=== PATIENT | female | born 1965 | race Caucasian/White ===

== ENCOUNTER 2019-07-11 05:46 | Inpatient (IN) ==
--- NOTE | 2019-06-25 11:31 | PAT Medication Instructions ---
Medication Instructions Date of Service June 25, 2019 Home Medications fluticasone furoate [Flonase Sensimist] 1 spray INTRANASAL DAILY PRN ibuprofen 200 mg PO Q6H PRN levothyroxine [Synthroid] 125 mcg PO QAM loratadine 10 mg PO DAILY PRN ranitidine HCl [Zantac Maximum Strength] 150 mg PO PM PRN ASK your surgeon for instructions ibuprofen 200 mg PO Q6H PRN DO NOT take the morning of surgery loratadine 10 mg PO DAILY PRN Take morning of surgery With a small sip of water, OTHERWISE NOTHING TO EAT OR DRINK AFTER MIDNIGHT: fluticasone furoate [Flonase Sensimist] 1 spray INTRANASAL DAILY PRN (if needed) levothyroxine [Synthroid] 125 mcg PO QAM Take evening before surgery fluticasone furoate [Flonase Sensimist] 1 spray INTRANASAL DAILY PRN (if needed) loratadine 10 mg PO DAILY PRN (if needed) ranitidine HCl [Zantac Maximum Strength] 150 mg PO PM PRN (if needed) Other Notes If you have any questions please call us at [phone] or [phone] or [phone] or [phone]
--- NOTE | 2019-06-26 14:12 | Anesthesiology Consultation ---
Date of Service June 26, 2019 Assessment & Plan (1) Encounter for pre-operative examination: Chart Review Chart Review: Acceptable Risk for Surgery and Patient seen in Pre Admission Testing Teaching & Discussion Pre-Anesthesia Teaching/Discussion Notes: Instructed NPO after midnight before surgery,except medications with 15 cc of water. Medication instructions provided according to the PAT guidelines. History Surgery Operation Date: 07/11/19 07:45 Proposed Procedures p L3-L5 Decompression and Fusion, Spinal Cord Monitoring - Josh Escobedo DO Height/Weight Height: 5 ft 6.5 in Weight: 103.9 kg Allergies Allergy/AdvReac Type Severity Reaction Status Date / Time Sulfa (Sulfonamide Allergy Verified 06/18/19 07:33 Antibiotics) Medications Home Medications Medication Instructions Recorded Confirmed Last Taken fluticasone furoate [Flonase 1 spray INTRANASAL DAILY PRN 06/18/19 06/18/19 Unknown Sensimist] ibuprofen 200 mg PO Q6H PRN 06/18/19 06/18/19 Unknown levothyroxine [Synthroid] 125 mcg PO QAM 06/18/19 06/18/19 Unknown loratadine 10 mg PO DAILY PRN 06/18/19 06/18/19 Unknown ranitidine HCl [Zantac Maximum 150 mg PO PM PRN 06/18/19 06/18/19 Unknown Strength] Past Medical History Medical History (Updated 06/26/19 @ 14:21 by Paola Sandoval) Chronic back pain Degenerative disc disease GERD (gastroesophageal reflux disease) controlled Hypertension Hypothyroidism Obesity Osteoarthritis Exercise / Class Metabolic Activity III < 4 Walking/Shop/Light housework Past Family History Family History Grandmother (Maternal) Colon cancer Past Surgical History Surgical History History of arthroscopy right knee ACL History of breast biopsy History of cholecystectomy History of colonoscopy History of tooth extraction Hx of hernia repair Past Anesthesia History No Hx of Anesthesia Complications and No Family Hx of Anesthesia Complications History of PONV No Hx of PONV and Hx of Motion Sickness Social History Smoking Status: Current every day smoker tobacco type: cigarettes Smoking cigarettes per day: 1/2 PPD x 30 years Do You Dip or Chew Tobacco: No Hx Alcohol Use: No Hx Substance Use: No substance use type: does not use Review of Systems Patient denies chest pain, shortness of breath, cough, wheezing, palpitations. Physical Exam Vital Signs VITALS BP 158/93 (known hx HTN, no meds- PCP monitoring) P 68 TEMP 97.9 SP02 100%RA RESP 18 PHYSICAL Full neck and c-spine range of motion. Full TMJ range of motion. TMD 3 finger breaths Mallampati Score 1 Dentition: intact., crown on side, implant on upper left side tooth Lungs: clear throughout to auscultation Cardiac: regular rate and rhythm, no murmurs noted Spine: normal Carotid arteries: negative bruit Extremities: no edema Testing Laboratory Results 06/26/19 14:25 06/26/19 14:25 PT 10.6 Seconds (9.0-12.0) 06/26/19 14: INR 1.0 (0.9-1.1) 06/26/19 14: APTT 25.2 Seconds (21.0-31.0) 06/26/19 14:25 Urine Color Yellow 06/26/19 14:25 Urine Appearance Clear (Clear) 06/26/19 14:25 Urine pH 7.5 (4.5-7.5) 06/26/19 14:25 Ur Specific Lapel 1.010 (1.000-1.030) 06/26/19 14:25 Urine Protein Negative (Negative) 06/26/19 14:25 Urine Glucose (UA) Negative (Negative) 06/26/19 14:25 Urine Ketones Negative (Negative) 06/26/19 14:25 Urine Nitrite Negative (Negative) 06/26/19 14:25 Ur Leukocyte Esterase Negative (Negative) 06/26/19 14:25 Blood Type O Positive 06/26/19 14:25 Antibody Screen NEGATIVE 06/26/19 14:25 Electrocardiogram Date: 06/26/19 Findings: + NSR @ (75) Chest X-Ray Date: 06/26/19 Findings: + NAD
--- NOTE | 2019-06-26 14:47 | XRay Report ---
XR chest Pre-admission PA/Lat CLINICAL HISTORY: pat COMPARISON STUDY: No previous studies for comparison. FINDINGS: The bones soft tissues and hemidiaphragms are normal. The cardiomediastinal silhouette is n ormal. The lungs are clear. The pulmonary vasculature is normal. IMPRESSION: Negative chest. ACT 112: Negative or not required by law. The above report was generated using voice recognition software. It may contain grammatical, syntax or spelling errors. Electronically signed by: Jean-Pierre Dudley M.D. 06/26/2019 2:46 PM
--- NOTE | 2019-06-26 15:05 | Electrocardiogram Report ---
Test Reason : Blood Pressure : / mmHG Vent. Rate : 075 BPM Atrial Rate : 075 BPM P-R Int : 162 ms QRS Dur : 088 ms QT Int : 386 ms P-R-T Axes : 000 063 041 degrees QTc Int : 431 ms Normal sinus rhythm Normal ECG No previous ECGs available Confirmed by Len Perez ([id number]) on 06/26/2019 3:05:18 PM Referred By: Josh Escobedo Confirmed By:Leon Perez
[2019-06-26 15:30] LABS: Basophils # (auto) 0.04 K/uL (0-0.2); Basophils % (auto) 0.6 %; Eosinophils # (auto) 0.14 K/uL (0-0.5); Hematocrit (blood only) 38.1 % (37-47); Hemoglobin 12.7 g/dL (12.0-16.0); Immature Granulocytes # (auto) 0.01 K/uL (0.00-0.02); Immature Granulocytes % (auto) 0.1 %; Lymphocytes # (auto) 2.67 K/uL (1.2-3.4); Lymphocytes % (auto) 38.6 %; Mean Corpuscular Hemoglobin 31.4 pg (25-34); Mean Corpuscular Hgb Conc 33.3 g/dL (32-36); Mean Corpuscular Volume 94.1 fL (80-100); Mean Platelet Volume 11.5 fL (7.4-10.4); Monocytes # (auto) 0.64 K/uL (0.11-0.59); Monocytes % (auto) 9.2 %; Neutrophils # (auto) 3.42 K/uL (1.4-6.5); Neutrophils % (auto) 49.5 %; Platelet Count 316 K/uL (130-400); RDW Coefficient of Variation 13.3 % (11.5-14.5); Red Blood Count 4.05 M/uL (4.2-5.4); White Blood Count 6.92 K/uL (4.8-10.8)
[2019-06-26 15:41] LABS: BUN Creatinine Ratio 15.7 (10-20); Calcium 9.2 mg/dl (8.5-10.1); Creatinine Clr Calc Pharmacy 97.5 ml/min; Est GFR (African American) 94.7; Est GFR (Non-African American) 81.7; Potassium 3.8 mmol/L (3.5-5.1)
[2019-06-26 15:43] LABS: Appearance Urine Clear (Clear); Bilirubin Urine Negative (Negative); Blood Urine Negative (Negative); Color Urine Yellow; Glucose Urine UA Negative (Negative); Ketones Urine Negative (Negative); Leukocyte Esterase Urine Negative (Negative); Nitrite Urine Negative (Negative); Protein Urine Negative (Negative); Urobilinogen Urine Negative (Negative); pH Urine 7.5 (4.5-7.5)
[2019-06-26 15:46] LABS: Partial Thromboplastin Ratio 0.9; Partial Thromboplastin Time 25.2 Seconds (21.0-31.0); Prothrombin Time 10.6 Seconds (9.0-12.0)
[2019-07-11] MEDS ORDERED: GABAPENTIN 900 MG DOSE PO SCH (06:00)
[2019-07-11] MEDS ORDERED: LR 15ML/HR IV SCH (06:00)
[2019-07-11] MEDS ORDERED: CeleBREX 200 MG CAP PO SCH (06:00)
[2019-07-11] MEDS ORDERED: ACETAMINOPHEN 500 MG TAB PO SCH (06:00)
[2019-07-11] MEDS ORDERED: CEFAZOLIN 2000MG 2,000 MG/15 ML SYR IV SCH (06:00)
[2019-07-11] MEDS ORDERED: DEXAMETHASONE SOD INJ 4 MG/ML VIAL ONE (06:47)
[2019-07-11] MEDS ORDERED: NEOSTIGMINE METHYLSULFATE 5 MG/5 ML SYR ONE (06:47)
[2019-07-11] MEDS ORDERED: ONDANSETRON INJ 2 MG/ML 2 ML VIAL ONE (06:47)
[2019-07-11] MEDS ORDERED: GLYCOPYRROLATE 0.2 MG/ML VIAL ONE (06:47)
[2019-07-11] MEDS ORDERED: MIDAZOLAM HCL 1 MG/ML 2ML VIAL ONE (06:47)
[2019-07-11] MEDS ORDERED: ROCURONIUM BROMIDE 10 MG/ML 5 ML VIAL ONE ×3 (06:47→08:29)
[2019-07-11] MEDS ORDERED: fentaNYL citrate 100 MCG/2 ML VIAL ONE ×2 (06:47→09:33)
[2019-07-11] MEDS ORDERED: LIDOCAINE HCL 2% 2 ML VIAL/AMP(20MG/ML) INFIL ONE (06:47)
[2019-07-11] MEDS ORDERED: PROPOFOL IV EMULSION 10 MG/ML 20 ML VIAL IV ONE ×2 (06:47→08:29)
[2019-07-11] MEDS ORDERED: BACITRACIN INJ 50,000 UNIT VIAL ONE (07:00)
[2019-07-11] MEDS ORDERED: BUPIVACAINE/EPINEPHRINE 0.5% MPF 1:200,000 10 ML VIAL ONE (07:00)
[2019-07-11] MEDS ORDERED: ePHEDrine sulfate 50 MG/ML AMP IV PRN (07:18)
[2019-07-11] MEDS ORDERED: ATROPINE SULFATE 0.1 MG/ML 10ML SYR IV PRN (07:18)
[2019-07-11] MEDS ORDERED: PROMETHAZINE HCL 12.5 MG in SODIUM CHLORIDE 0.9% 50 ML IV PRN ×2 (07:18→11:45)
[2019-07-11] MEDS ORDERED: ONDANSETRON INJ 2 MG/ML 2 ML VIAL IV PRN ×2 (07:18→11:45)
[2019-07-11] MEDS ORDERED: HYDROmorphone INJ 2 MG/ML SYR/VIAL IV PRN (07:18)
--- NOTE | 2019-07-11 07:29 | History & Physical Bridge Note ---
Date of Service July 11, 2019 History & Physical Bridge Note I have examined the patient, reviewed the History & Physical and in the interval since the performance of the History & Physical I have noted the following changes of clinical significance: no changes noted
--- NOTE | 2019-07-11 07:30 | History & Physical Report ---
Date of Service July 11, 2019 Assessment & Plan (1) Neurogenic claudication due to lumbar spinal stenosis: L3-L5 decompression fusion Present on Admission?: Yes History of Present Illness Chief Complaint: Back and bilateral leg pain Primary Care Provider: Jeff Tolbert MD This is a 53-year-old female presents with chronic persistent back and bilateral leg pain after failing extensive course of nonoperative care she is here for surgical invention. Allergies Allergy/AdvReac Type Severity Reaction Status Date / Time Sulfa (Sulfonamide Allergy Verified 07/11/19 06:04 Antibiotics) Home Medications Home Medications Medication Instructions Recorded Confirmed Type fluticasone furoate [Flonase 1 spray INTRANASAL DAILY PRN 06/18/19 07/11/19 History Sensimist] ibuprofen 200 mg PO Q6H PRN 06/18/19 07/11/19 History levothyroxine [Synthroid] 125 mcg PO QAM 06/18/19 07/11/19 History loratadine 10 mg PO DAILY PRN 06/18/19 07/11/19 History ranitidine HCl [Zantac Maximum 150 mg PO PM PRN 06/18/19 07/11/19 History Strength] Past Med/Surg History Family History Grandmother (Maternal) Colon cancer Social History Preferred Language: Israeli Communication Ability: Effective Cable Installation Manager Required: No Beliefs That Will Affect Care: None Current Living Situation: Spouse Other Information That Helps Us Care for You: No Feels Safe at Home: Yes Safety Concerns: Feels Safe At This Time Smoking Status: Current every day smoker Tobacco Type: cigarettes ; Cigarettes Per Day: 1/2 PPD x 30 years ; Do You Dip or Chew Tobacco: No ; Second Hand Exposure: Yes ; Tobacco Cessation Education Requested by Patient: No Hx Alcohol Use: No Hx Substance Use: No Physical Exam Physical Exam: Patient is alert and oriented neurologically intact. Results & Data Vital Signs (Past 12 Hours) Vital Signs Temp Pulse Resp BP Pulse Ox 07/11/19 06:09 36.4 C L 56 L 16 157/91 H 96
[2019-07-11] MEDS ORDERED: ePHEDrine sulfate 50 MG/ML SYR ONE (08:29)
[2019-07-11] MEDS ORDERED: FLOSEAL HEMOSTATIC MATRIX 10ML TOP ONE (09:46)
--- NOTE | 2019-07-11 10:16 | Operative Report ---
Post Operative Report Pre & Post Diagnosis Operation Date: 07/11/19 07:45 Pre-Op Diagnosis: Spondylolisthesis L4-5. Lumbar spinal stenosis with neurogenic claudication. Post-Op Diagnosis: Same I identified the patient and participated in the time-out.: Yes Procedure Operation Date: 07/11/19 07:45 Actual Procedures #1 lumbar decompression with bilateral medial facetectomies and foraminotomies L3-4 L4-5. #2 posterior spinal fusion L3-4 L4-5 per #3 placement posterior instrumentation L3-4 L4-5. #4 interbody fusion L4-5. #5 placement of titanium 12 x 22 mm cage at L4-5 per #6 placement locally harvested morselized autograft in the posterior lateral gutters. #7 placement infuse collagen sponge, master graft in the posterior gutters and ostial amp and interbody space. Surgeon Josh Escobedo DO Railroad Car Letterer None Estimated Blood Loss 150 Findings See Below Patient is 5 foot 6 inches tall weighing over 130 kg with a BMI in excess of 36. The patient's body habitus did add significant technical difficulty requiring her deepest retractors longus instruments in order to perform her surgery. This did add at least 40% increase to the operative time. Specimens None Indications This is a 53-year-old female presents above-mentioned diagnosis after failing extensive course of nonoperative care is here for dementia procedure. Description of Procedure Patient was met with identified informed consent obtained. Patient was then taken to the operative suite underwent an patient placed in prone position the Thony table on top of the Anand frame. All bony prominences well-padded eyes inspected to ensure no external pressure placed upon up at this point the lumbar spine was prepped and draped in normal sterile fashion. Sharp dissection with the assistance of Bovie cautery was performed down to and exposing the lamina and transverse processes of L3-L4 and L5 bilaterally. From caudal cephalad fashion complete laminectomy of L4 and L3 was performed including bilateral medial facetectomies and foraminotomies addressing severe spinal stenosis. Pedicle screws were then placed in L3-L4 and L5 bilaterally with assistance of fluoroscopy the purposes wilfrido placed. By way of a transforaminal approach on the left complete discectomy of L4-5 was performed endplates curetted to subcortical bleeding bone and a 12 x 22 mm titanium cage filled with osteo-bone graft tapped in position. The rods were then locked in final position bilaterally. The transverse processes of L3-L4 and L5 bur to subcortical bleeding bone. Infuse collagen sponge master graft local autograft was placed the posterior gutters. 15 round JOCY drain inserted. Incision was then closed with 1 Vicryl fascia 2-0 Vicryl subcutaneously and 4 Monocryl for final skin closure. Steri-Strip sterile dressings placed. Spinal cord monitoring was utilized that the procedure no changes noted. Patient was awakened taken to PACU in stable condition. I attest to the content of the Intraoperative Record and any orders documented therein. Any exceptions are noted below.
[2019-07-11] MEDS: fentaNYL citrate 100 MCG/2 ML VIAL IV PRN ×4 (10:32→10:47)
[2019-07-11] MEDS ORDERED: HYDROmorphone INJ 1 MG/ML SYRINGE ONE (10:58)
--- NOTE | 2019-07-11 10:59 | Fluoroscopy Report ---
FL lumbar spine 2-3V CLINICAL HISTORY: L3-L5 DECOMPRESSION/FUSION COMPARISON STUDY: None FLUOROSCOPY TIME: 24 seconds. NUMBER OF FLUOROSCOPIC IMAGES: 2 FINDINGS: Accurate numbering is difficult given the limited [id number]. There are postsurgical daiana nges of what appears to be an L4-5 discectomy and interbody fusion. There is mild grade 1 spondylolis thesis of L4 on L5 and L5: S1. There are postsurgical changes of posterior spinal fusion with L3, L4, and L5 pedicle screws and adjoining spinal rods. IMPRESSION: Intraoperative fluoroscopic spot images demonstrating postsurgical changes as described above. ACT 112: Negative or not required by law. Electronically signed by: Ryley Butts M.D. 07/11/2019 10:57 AM
--- NOTE | 2019-07-11 11:42 | Anesthesiology Progress Note ---
Date of Service July 11, 2019 Anesthesia Post Procedure Vital Signs Vital Signs: Temp Pulse Pulse Resp BP Pulse Ox 07/11/19 11:10 36.3 C L 57 L 14 130/82 100 07/11/19 11:00 62 20 124/75 100 07/11/19 10:50 60 16 127/77 100 07/11/19 10:40 75 18 138/74 99 07/11/19 10:30 90 15 105/60 100 07/11/19 10:21 36.3 C L 98 H 16 126/68 100 07/11/19 06:09 36.4 C L 56 L 16 157/91 H 96 Pain Intensity Back: Pain Intensity: 4 Transfer of Care Handoff Completed per policy Notes Mental Status: alert / awake / arousable and participated in evaluation Patient Amnestic to Procedure: Yes Nausea / Vomiting: adequately controlled Pain: adequately controlled Airway Patency, RR, SpO2: stable & adequate BP & HR: stable & adequate Hydration State: stable & adequate Anesthetic Complications: no major complications apparent and Pt Satisfied with anesthetic care
[2019-07-11] MEDS ORDERED: SOD PHOSPHATE/SOD BIPHOSPHATE ENEMA 132 ML BTL PR PRN (11:45)
[2019-07-11] MEDS ORDERED: ACETAMINOPHEN 500 MG TAB PO PRN (11:45)
[2019-07-11] MEDS ORDERED: MAGNESIUM HYDROXIDE SUSP 30 ML UDC PO PRN (11:45)
[2019-07-11] MEDS ORDERED: HYDROmorphone INJ 0.5 MG/0.5 ML SYR IV PRN (11:45)
[2019-07-11] MEDS ORDERED: LORazepam 0.5 MG TAB PO PRN (11:45)
[2019-07-11] MEDS ORDERED: DO NOT ADMINISTER PNEUMOCOCCAL VACCINE PRN (11:45)
[2019-07-11] MEDS ORDERED: DO NOT ADMINISTER FLU VACCINE PRN (11:45)
[2019-07-11] MEDS ORDERED: NALOXONE HCL 0.4 MG/1 ML VIAL/CARP IV PRN (11:45)
[2019-07-11] MEDS ORDERED: LORATADINE 10 MG TAB PO PRN (11:45)
[2019-07-11] MEDS ORDERED: FAMOTIDINE 20 MG TAB PO PRN (11:45)
[2019-07-11] MEDS ORDERED: ONDANSETRON 4 MG OD TAB PO PRN (11:45)
[2019-07-11] MEDS ORDERED: bisacodyL 10 MG SUPP PR PRN (11:45)
[2019-07-11] MEDS ORDERED: METOCLOPRAMIDE HCL INJ 5 MG/ML 2 ML VIAL IV PRN (11:45)
[2019-07-11] MEDS ORDERED: LORazepam 0.5 MG/1 ML VIAL IV PRN (11:45)
[2019-07-11] MEDS ORDERED: HYDROmorphone INJ 1 MG/ML SYRINGE IV PRN (11:45)
[2019-07-11] MEDS ORDERED: ACETAMINOPHEN 1,000 MG/100 ML VIAL IV PRN (11:45)
[2019-07-11] MEDS ORDERED: FLUTICASONE PROPIONATE NA SPR 16 GM BTL PRN (12:00)
[2019-07-11] MEDS: LACTATED RINGER'S 1,000 ML IV SCH ×2 (12:05→22:22)
[2019-07-11] MEDS: KETOROLAC TROMETHAMINE 15 MG/ML VIAL IV SCH ×3 (12:07→23:51)
[2019-07-11] MEDS: CEFAZOLIN 2000MG 2,000 MG/15 ML SYR IV SCH ×2 (16:07→23:51)
[2019-07-11] MEDS: DOCUSATE SODIUM/SENNA 50/8.6MG TAB PO SCH (20:09)
[2019-07-12 05:36] LABS: Basophils # (auto) 0.01 K/uL (0-0.2); Basophils % (auto) 0.1 %; Eosinophils # (auto) 0.03 K/uL (0-0.5); Eosinophils % (auto) 0.3 %; Hematocrit (blood only) 29.5 % (37-47); Hemoglobin 9.9 g/dL (12.0-16.0); Immature Granulocytes # (auto) 0.02 K/uL (0.00-0.02); Immature Granulocytes % (auto) 0.2 %; Lymphocytes % (auto) 23.8 %; Mean Corpuscular Hemoglobin 32.1 pg (25-34); Mean Corpuscular Hgb Conc 33.6 g/dL (32-36); Mean Corpuscular Volume 95.8 fL (80-100); Mean Platelet Volume 11.3 fL (7.4-10.4); Monocytes % (auto) 9.5 %; Neutrophils # (auto) 6.95 K/uL (1.4-6.5); Neutrophils % (auto) 66.1 %; Platelet Count 239 K/uL (130-400); RDW Coefficient of Variation 13.5 % (11.5-14.5); RDW Standard Deviation 46.9 fL (36.4-46.3); Red Blood Count 3.08 M/uL (4.2-5.4); White Blood Count 10.51 K/uL (4.8-10.8)
[2019-07-12] MEDS: LEVOTHYROXINE SODIUM 125 MCG TABLET PO SCH (05:44)
[2019-07-12] MEDS: KETOROLAC TROMETHAMINE 15 MG/ML VIAL IV SCH (05:44)
[2019-07-12] MEDS: POLYETHYLENE (MIRALAX) 17 GM PACK PO SCH ×3 (05:44→17:16)
[2019-07-12] MEDS: LACTATED RINGER'S 1,000 ML IV SCH (05:45)
[2019-07-12 05:56] LABS: BUN Creatinine Ratio 17.8 (10-20); Calcium 8.1 mg/dl (8.5-10.1); Creatinine Clr Calc Pharmacy 111.3 ml/min; Est GFR (African American) 112.7; Est GFR (Non-African American) 97.2; Potassium 3.8 mmol/L (3.5-5.1)
--- NOTE | 2019-07-12 08:10 | Anesthesiology Progress Note ---
Date of Service July 12, 2019 Anesthesia Post Procedure Vital Signs Vital Signs: Temp Pulse Pulse Resp BP Pulse Ox 07/12/19 04:02 36.6 C 61 18 132/80 95 07/11/19 23:02 36.6 C 59 L 16 120/75 96 07/11/19 19:44 37.2 C 65 16 135/83 94 07/11/19 15:46 36.6 C 65 16 129/82 92 07/11/19 14:24 36.5 C 70 16 115/79 100 07/11/19 13:37 55 L 16 118/77 100 07/11/19 12:19 61 16 119/78 100 07/11/19 11:54 36.7 C 60 18 110/77 100 07/11/19 11:25 36.7 C 60 16 136/74 100 07/11/19 11:10 36.3 C L 57 L 14 130/82 100 07/11/19 11:00 62 20 124/75 100 07/11/19 10:50 60 16 127/77 100 07/11/19 10:40 75 18 138/74 99 07/11/19 10:30 90 15 105/60 100 07/11/19 10:21 36.3 C L 98 H 16 126/68 100 Pain Intensity Back: Pain Intensity: 4 Notes Mental Status: alert / awake / arousable and participated in evaluation Patient Amnestic to Procedure: Yes Nausea / Vomiting: adequately controlled Pain: adequately controlled Airway Patency, RR, SpO2: stable & adequate BP & HR: stable & adequate Hydration State: stable & adequate Anesthetic Complications: no major complications apparent and Pt Satisfied with anesthetic care
--- NOTE | 2019-07-12 09:02 | Orthopedic Progress Note ---
Date of Service July 12, 2019 Assessment & Plan (1) Neurogenic claudication due to lumbar spinal stenosis: At this time we will continue physical therapy monitor her JOCY output anticipate discharge home in the next few days. Present on Admission?: Yes Admission and Anticipated Discharge Date Admission Date: July 11, 2019 Subjective Back pain controlled leg symptoms markedly improved. Physical Exam Physical Exam: Patient is in a chair at the bedside. She is asked instructed testing. Results & Data ([facility]) Vital Signs (Past 12 Hours) Vital Signs Temp Pulse Pulse Resp BP Pulse Ox 07/12/19 08:16 36.8 C 63 16 126/82 96 07/12/19 04:02 36.6 C 61 18 132/80 95 07/11/19 23:02 36.6 C 59 L 16 120/75 96
[2019-07-12] MEDS: OXYCODONE HCL IR 5 MG TAB (IMMEDIATE RELEASE) PO PRN ×2 (09:45→13:45)
[2019-07-12] MEDS: TRAMADOL HCL 50 MG TABLET PO PRN (17:15)
[2019-07-12] MEDS: ALUMINUM/MAGNESIUM SUSP 30 ML UDC PO PRN (18:56)
[2019-07-12] MEDS: DOCUSATE SODIUM/SENNA 50/8.6MG TAB PO SCH (20:34)
[2019-07-13] MEDS: POLYETHYLENE (MIRALAX) 17 GM PACK PO SCH ×5 (00:08→23:16)
[2019-07-13] MEDS: LEVOTHYROXINE SODIUM 125 MCG TABLET PO SCH (05:10)
[2019-07-13] MEDS: TRAMADOL HCL 50 MG TABLET PO PRN (06:42)
--- NOTE | 2019-07-13 07:50 | Orthopedic Progress Note ---
Date of Service July 13, 2019 Assessment & Plan (1) Neurogenic claudication due to lumbar spinal stenosis: This time we will continue physical therapy monitor her JOCY output advance her bowel regiment anticipate discharge home tomorrow. Present on Admission?: Yes Admission and Anticipated Discharge Date Admission Date: July 11, 2019 Subjective Back pain controlled leg pain improved Physical Exam Physical Exam: Patient is in the chair at the bedside. Is good strength testing. Appears comfortable. Results & Data ([facility]) Vital Signs (Past 12 Hours) Vital Signs Temp Pulse Resp BP BP Pulse Ox 07/13/19 06:36 36.5 C 80 16 117/63 92 07/12/19 22:56 37.2 C 96 H 16 130/82 94
[2019-07-13] MEDS ORDERED: DEXAMETHASONE SOD PHOSPHATE 8 MG in SYRINGE 0 ML IV ONE (08:30)
[2019-07-13] MEDS: OXYCODONE HCL IR 5 MG TAB (IMMEDIATE RELEASE) PO PRN ×3 (09:15→19:55)
[2019-07-13] MEDS: ALUMINUM/MAGNESIUM SUSP 30 ML UDC PO PRN (15:20)
[2019-07-13] MEDS: DOCUSATE SODIUM/SENNA 50/8.6MG TAB PO SCH (19:56)
[2019-07-14] MEDS: LEVOTHYROXINE SODIUM 125 MCG TABLET PO SCH (06:07)
[2019-07-14] MEDS: OXYCODONE HCL IR 5 MG TAB (IMMEDIATE RELEASE) PO PRN ×2 (07:54→12:00)
--- NOTE | 2019-07-14 11:09 | Discharge Summary ---
Date of Service July 14, 2019 Admission HPI Per Admitting Provider This is a 53-year-old female presents with chronic persistent back and bilateral leg pain after failing extensive course of nonoperative care she is here for surgical invention. Principal Diagnosis Lumbar spinal stenosis with neurogenic claudication Discharge Data Allergies Allergy/AdvReac Type Severity Reaction Status Date / Time Sulfa (Sulfonamide Allergy Verified 07/11/19 06:04 Antibiotics) Consultations 07/11/19 11:45 Consult Case Management - Discharge Planning Routine Procedures Performed Operation Date: 07/11/19 07:45 Actual Procedures p L3-L5 Decompression and Fusion, application of Infuse, application of Osteoamp, Spinal Cord Monitoring(Not Applicable) - Johs Escobedo DO Ordered Studies 07/11/19 07:45 FL fluoroscopy <1hr Routine FL lumbar spine 2-3V Routine Hospital Course (1) Neurogenic claudication due to lumbar spinal stenosis: Patient status post multilevel lumbar decompression fusion tolerated well second orthopedic for postoperative. Postop day 1 she was up and ambulating postop day #2 she continued to progress on postop day #3 JOCY drainage decreased probably. She is excellent strength testing. Ambulating without difficulty. Subsequently discharged home. Discharge orders instructions from the chart for further review. Total Time Total Time Spent Total Time Spent (In Minutes): 20-minute Discharge Plan Discharge Items Patient Disposition: Home - Self-Care Reason For Visit: LUMBAR SPINAL STENOSIS WO NEUROGENIC CLAUDICATION Discharge Diagnosis: Spinal stenosis with neurogenic claudication Activity: As commented below Non-emergency contact: Primary Care Provider Call non-emergency contact if: you have any medication questions Follow-up/Referrals: Jeff Tolbert MD [Primary Care Provider] - Diet: Regular Addtl Attending Provider Instructions: ACTIVITY RECOMMENDATIONS: SELF CARE INSTRUCTIONS AFTER THORACIC/LUMBAR FUSIONS 1. You may walk to your tolerance. It is good exercise for your legs and back. Expect some back and intermittent leg aches and pains. 2. You may perform "counter-top" level activities (make a sandwich, katarzyna with a project, etc.). 3. No bending or lifting of more than 10 pounds or back twisting of any nature (roll like a log when turning in bed). 4. You may ride in a car for 20-30 minutes at a time. No driving until after your first visit with your doctor. 5. Frequent changes of position and restricting sitting to 30 minutes at a time will help limit the amount of back spasms and stiffness you may experience. 6. You may discontinue the use of ambulatory aids (cane, crutches, etc.) once your strength and confidence allow. 7. You may senior integration developer the shower and let water strike your incision when you a rrive home at least once daily. Do not take a tub bath, sit in a hot tub or go into a swimming pool until after your first recheck in the office. SPECIAL CARE INSTRUCTIONS: VERY IMPORTANT TO READ AND REVIEW A. Your surgical incision has been closed with a cosmetic suture under the skin that will dissolve in about 6 weeks. In 14 days, you can use a pair of clean scissors and cut the suture that is left outside of the skin at the ends of your incision. 1. The small skin tapes can be removed 7 days after surgery if they have not fallen off by that point. 2. You may keep the wound open to air as much as possible to promote healing after post-op day number 5 unless told otherwise by your doctor. 3. If you think the wound looks like it is becoming infected (redness or worsening drainage) and/or you are experiencing fever, chill or worsening back pain and muscle spasms, contact the office so that we may evaluate you as soon as possible. B. Complications are uncommon, but please contact us if you have any signs or symptoms of: 1. wound infection (fever higher than 102.5 degrees F, redness, separation of wound, drainage, or increasing pain from the incision) 2. blood clots in legs (pain, swelling, redness and warmth in legs) 3. urinary tract infection (fever higher than 102.5 degrees F, burning upon urination or increased frequency of urination) 4. nerve problems (inability to walk on your toes or heels, numbness, loss of bowel or bladder control) 5. any other symptoms that concern you C. Please call the office at if you have any concerns or questions about your operation or recovery. D. No smoking! Smoking drastically decreases the chance of a solid fusion. E. Do not take any anti-inflammatory medications (Indocin, Advil, Motrin, Aspirin, Naprosyn, etc.) as these may inhibit the chance of a solid fusion. Tylenol is okay to take for pain. MANAGING PAIN AFTER SPINAL SURGERY 1. Narcotic medication is intended for short-term use and will be provided for surgical pain. Surgical pain usually lasts for a period of 4-6 weeks. Narcotic medication includes Percocet, Vicodin, Darvocet, Tylenol #3 or Lortab. 2. Longer-term pain is more appropriately treated with non-narcotic medication such as Tylenol ES. 3. Muscle spasm is not appropriately treated with narcotics. Muscle relaxers such as Soma, Flexeril or Skelaxin can be used along with Tylenol ES. 4. Remember that we all live with some "aches and pains". This is not unusual or uncommon after an injury or as we get older. a. Back pain is expected and may include muscle spasms for 4 to 6 weeks afte r surgery. The pain should gradually improve. If the pain worsens for no apparent reason, please contact the office. b. Intermittent leg pain may also be experienced and should not be concerned about unless it worsens for no apparent reason. If so, please contact the office. 5. We will provide appropriate medication within the normal guidelines of their prescribed use. We will also be very cautious and aware of potential abuse and extended duration of patients' medication needs. a. Pain medications are for your comfort and to assist with sleep and rest so that the tissue can heal. They are not provided in order to return to normal activity and should not be used through the day. To do so or worsening pain at night can result from ongoing tissue damage and development of tolerance to the prescribed medicine. 6. Please allow 2-3 days to process refills. Prescriptions will not be mailed but must be picked up at the office. FOLLOW UP VISIT: Keep your scheduled follow-up appointment. Any questions, please call the office at . Pending Studies at Discharge: No Stand-Alone Forms: My [employer], Smoking Cessation Medications and DC Order Prescriptions: New tramadol 50 mg tablet 50 mg PO Q6H PRN (Reason: pain, moderate) Qty: 30 RF: 0 oxycodone 5 mg tablet 5 mg PO Q6H PRN (Reason: pain, severe) Qty: 30 RF: 0 Continued levothyroxine [Synthroid] 125 mcg Tablet 125 mcg PO QAM RF: 0 ranitidine HCl [Zantac Maximum Strength] 150 mg Tablet 150 mg PO PM PRN (Reason: Heartburn) RF: 0 loratadine 10 mg Tablet 10 mg PO DAILY PRN (Reason: Allergy Symptoms) RF: 0 Flonase Sensimist 27.5 mcg/actuation [place],Suspension 1 spray INTRANASAL DAILY PRN (Reason: Allergic Symptoms) RF: 0 Discontinued ibuprofen 200 mg Tablet 200 mg PO Q6H PRN (Reason: Pain) RF: 0 Discharge Orders: Discharge Order (Routine); Ordered 07/14/19 Ordered By: Josh Escobedo Admission Data Admit Date/Time: 07/11/19 10:21 Attending Provider: Josh Escobedo Admit Provider: Josh Escobedo Primary Care Provider: Jeff Tolbert
== END 2019-07-14 12:55 | disposition home or self-care (01) | DRG 455 ==
LOC: ASU 05:46 → 3E 10:21